=== PATIENT | male | born 1985 | race Hispanic/Latino ===

== ENCOUNTER 2017-07-26 00:12 | Emergency (ER) | payer OTHER ==
[~2017-07-26] VITALS: Ht 160 cm; Wt 78.7 kg
[2017-07-26 01:45] LABS: HEMATOCRIT 45.1 % (38.0-50.0); HEMOGLOBIN 15.9 G/DL (12.5-16.6); MCH 30.4 PG (29.0-34.0); MCHC 35.3 G/DL (30.0-36.0); MCV 86.2 FL (86-99); RBC DIS.WIDTH-CV 12.4 % (11.8-14.6); RBC DIS.WIDTH-SD 39.2 % (39-53); RED BLOOD COUNT 5.23 M/uL (4.00-5.50); WHITE BLOOD COUNT 9.6 K/uL (4.1-10.2)
[2017-07-26 01:56] LABS: ALBUMIN 4.7 g/dL (3.2-4.8); CHLORIDE 107 mEq/L (99-109); POTASSIUM 3.8 mEq/L (3.7-5.4); SODIUM 138 mEq/L (136-147)
[2017-07-26 01:58] LABS: GLUCOSE 102 mg/dL (70-99); TOTAL PROTEIN 7.3 g/dL (6.4-8.3)
[2017-07-26 02:00] LABS: TOTAL BILIRUBIN 0.7 mg/dL (0.0-1.0)
[2017-07-26 02:01] LABS: SERUM ETHYL ALCOHOL < 10 mg/dL
[2017-07-26 02:02] LABS: ALKALINE PHOSPHATASE 68 IU/L (3-129); CREATININE 0.9 mg/dL (0.6-1.3); GFR ESTIMATE (CALCULATED) > 59 mL/min/ (58.99-99999)
[2017-07-26 02:03] LABS: UREA NITROGEN (BUN) 22 mg/dL (9-23)
[2017-07-26 02:04] LABS: AST (GOT) 34 IU/L (2-34)
[2017-07-26 02:05] LABS: ALT (GPT) 30 IU/L (3-49); LIPASE 24 U/L (1.0-51.0); TOTAL CK 1083 IU/L (1-294)
[2017-07-26 02:07] LABS: CREATINE KINASE 1083 IU/L (1-294); TROP-I INTERPRETATION NEGATIVE; TROPONIN-I < 0.01 ng/mL (0.0-0.30)
[2017-07-26 02:11] LABS: CK-MB 4.9 ng/mL (0.0-4.9); CKMB RELATIVE INDEX 0.5 (0.0-3.9)
[2017-07-26 02:16] LABS: APPEARANCE CLEAR ((CLEAR)); BILIRUBIN NEGATIVE; BLOOD NEGATIVE; COLOR YELLOW ((YELLOW)); GLUCOSE (STRIP) NEGATIVE; KETONES 20; LEUKOCYTES NEGATIVE; NITRITE NEGATIVE; PROTEIN (STRIP) NEGATIVE; SPECIFIC GRAVITY 1.029 (1.000-1.030); UCUL ADDED? NO; UROBILINOGEN 0.2 MG/DL (0.2-1.0)
[2017-07-26 02:29] LABS: AMPHETAMINE PRESUMPTIVE POSITIVE (500 ng/mL); BARBITURATES NEGATIVE (200 ng/mL); BENZODIAZEPINES NEGATIVE (150 ng/mL); BUPRENORPHINE NEGATIVE (10 ng/mL); COCAINE NEGATIVE (150 ng/mL); METHADONE NEGATIVE (200 ng/mL); METHAMPHETAMINE NEGATIVE (500 ng/mL); OPIATES (MORPHINE) NEGATIVE (100 ng/mL); OXYCODONE NEGATIVE (100 ng/mL); PHENCYCLIDINE NEGATIVE (25 ng/mL); PROPOXYPHENE NEGATIVE (300 ng/mL); THC CANNABINOIDS NEGATIVE (50 ng/mL); TRICYCLIC ANTIDEPRESSANTS NEGATIVE (300 ng/mL)
[2017-07-26 02:53] LABS: ACETAMINOPHEN (TYLENOL) < 10 mcg/mL (10-30); SALICYLATE < 5.0 MG/DL (15-30)
[2017-07-26 03:13] LABS: PLAT.SUFFICIENCY ADEQUATE; PLATELET COUNT 229 K/uL (156-360)
[2017-07-26 03:58] LABS: CREATINE KINASE 926 IU/L (1-294); TOTAL CK 926 IU/L (1-294)
[2017-07-26 04:03] LABS: CK-MB 4.6 ng/mL (0.0-4.9); CKMB RELATIVE INDEX 0.5 (0.0-3.9)
[2017-07-26 04:45] VITALS: BP 113/64
== END 2017-07-26 04:46 | disposition home or self-care (01) ==
LOC: EME 00:12
PROVIDERS: Emergency Medicine
DX: M62.82 Rhabdomyolysis (principal); E86.0 Dehydration; R82.5 Elevated urine levels of drugs, medicaments and biological substances; R42 Dizziness and giddiness; R06.00 Dyspnea, unspecified; F17.200 Nicotine dependence, unspecified, uncomplicated
CPT/HCPCS: 70450; 71045; 80053; 81003; 82550; 82550 91; 82553; 83690; 84484; 84999; 85027; 93005; 99281; 99285; G0480; J7030